=== PATIENT | female | born 1955 | race Caucasian/White ===

== ENCOUNTER → 2017-06-22 | Outpatient (CLI) | payer OTHER | LOC: FIMAGING 13:17 | PROVIDERS: ATTEND Internal Medicine | DX: Z12.31 Encounter for screening mammogram for malignant neoplasm of breast (principal) | CPT/HCPCS: G0202 ==

== ENCOUNTER → 2017-07-14 | Outpatient (CLI) | payer OTHER | LOC: FIMAGING 09:00 | PROVIDERS: ATTEND Internal Medicine | DX: Z12.39 Encounter for other screening for malignant neoplasm of breast (principal); R92.8 Other abnormal and inconclusive findings on diagnostic imaging of breast | CPT/HCPCS: G0206 ==

== ENCOUNTER 2018-02-17 07:04 | Emergency (ER) | payer OTHER ==
--- NOTE | 2018-02-17 07:21 | CPEKG ---
Heart Rate: 97 RR Interval: 619 P-R Interval: 172 QRSD Interval: 82 QT Interval: 332 QTC Interval: 422 P [place]: 32 QRS [place]: 13 T Wave [place]: 12 EKG Severity - NORMAL ECG - EKG Impression: SINUS RHYTHM Electronically Signed By: Aki Chowdhury 18-Feb-2018 07:37:20
[2018-02-17] MEDS ORDERED: HYOSCYAMINE SULFATE 0.125 MG TAB PO ONE (07:41)
[2018-02-17] MEDS ORDERED: LIDOCAINE 2% VISCOUS 15 ML UDCUP PO ONE (07:41)
[2018-02-17] MEDS ORDERED: ASPIRIN 81 MG CHEWABLE TAB PO ONE (07:41)
[2018-02-17] MEDS ORDERED: NS 500 ML IV ONE (07:41)
[2018-02-17] MEDS ORDERED: MAG HYDROX/AL HYDROX/SIMETH 30 ML UDCUP PO ONE (07:41)
--- NOTE | 2018-02-17 07:45 | EDPHY ---
H & P Time Seen by Provider: 02/17/18 07:20 HPI/ROS: CHIEF COMPLAINT: Epigastric pain/chest pain HISTORY OF PRESENT ILLNESS: The patient is a 63-year-old female who presents emergency department with epigastric/substernal chest pain. Pain started on night while sleeping. It is been constant. She describes it as 8/10. I woke her from sleep. It is slightly worse when she lays back or lays on her side. It improves when she sits forward. She has had no fever but does report chills. No shortness of breath. No cough. No nausea or vomiting. Patient states she drinks 1/2 to 1 bottle of wine per day. She does not smoke. REVIEW OF SYSTEMS: My complete review of systems is negative except as mentioned in the HPI. Past Medical/Surgical History: Includes hypertension Past surgical history: Cholecystectomy Family history: The patient's father of a heart attack age 50. The patient's mother had COPD Social history: The patient does not smoke. She drinks alcohol daily. Smoking Status: Never smoked Physical Exam: Vitals noted GENERAL: Well-appearing, in no acute distress, alert. HEENT: Eyes normal to inspection, normal pharynx, no signs of dehydration. NECK: [No thyromegaly, no lymphadenopathy, supple. RESPIRATORY: Clear to auscultation bilaterally, no rales, rhonchi or wheezing. CVS: Regular rate and rhythm, no rubs, murmurs, or gallops. ABDOMEN: Soft, nontender, nondistended, no organomegaly. Benign. BACK: Normal to inspection, no CVA tenderness. SKIN: Normal color, no rash, warm, dry. No pallor. EXTREMITIES: No pedal edema, no calf tenderness, no Homans sign or cords, no joint swelling. NEURO/PSYCH: Alert and oriented x3, normal mood and affect, normal motor sensory exam. Constitutional: Initial Vital Signs Temperature (C) 37.2 C 02/17/18 07:09 Heart Rate 109 H 02/17/18 07:09 Respiratory Rate 20 02/17/18 07:09 Blood Pressure 160/90 H 02/17/18 07:09 O2 Sat (%) 94 02/17/18 07:09 O2 Delivery Mode Room Air Allergies/Adverse Reactions: No Known Allergies Allergy (Unverified 02/17/18 07:06) Home Medications: Medication Instructions Recorded Estradiol 02/17/18 Famotidine [Pepcid 20 MG (*)] 20 mg PO BID #10 tab 02/17/18 Lisinopril 02/17/18 Progesterone 02/17/18 Sertraline HCl 02/17/18 Medical Decision Making - Diagnostics Imaging Results: Imaging Impressions Chest X-Ray 02/17/18 07:41 Impression: Left lower lobe opacity, atelectasis versus pneumonia with small left pleural effusion. Chest/Thorax CTA 02/17/18 08:07 Impression: 1. No evidence of pulmonary embolic disease. 2. Bibasilar opacities, left greater than right, probably reflecting atelectasis. 3. See above report for additional findings. Results called and discussed with LISA FELICIANO M.D. on 02/17/2018 at 9:09. ED Course/Re-evaluation: In the emergency department I discussed possible etiologies with the patient. I answered all her questions. Patient was given aspirin orally. She was given a GI cocktail. Laboratory studies, EKG and chest x-ray were ordered. EKG shows normal sinus rhythm, normal rate, normal axis, normal intervals. There are no ST or T-wave abnormalities. EKG is normal as interpreted by me. I reviewed the patient's laboratory studies. White count is 10. Chemistry panel is unremarkable. Lipase is normal. LFTs are normal. Troponin is negative. D-dimer was elevated at 1.81. I discussed this result with the patient. I answered all her questions. A CT angiogram was ordered. CT angiogram of the chest: Please refer the dictated report by Dr. Jimenez. No pulmonary embolus. No signs of cardiac enlargement. Normal appearing pancreas. Patient does have bilateral atelectasis versus small early infiltrate. I discussed the results with the patient. I answered all her questions. On recheck the patient stated she was feeling better after the GI cocktail. Again, the patient reports no shortness of breath or cough. No fevers at home. At this time I do not feel the patient needs to be started on antibiotics. I feel this is more likely atelectasis. The patient will ambulate regularly. She will take deep breaths. She will follow up with primary care physician. She was given warnings prior to leaving. She will return with worsening symptoms. Differential Diagnosis: My differential includes but is not limited to ACS, acute [place], pericarditis, myocarditis, pulmonary embolus, dissection, aneurysm, pancreatitis, GERD, peptic ulcer disease - Data Points Laboratory Results: Laboratory Results 02/17/18 07:25 02/17/18 07:25 02/17/18 02/17/18 02/17/18 07:46 07:31 07:25 WBC RBC Hgb POC Hgb 15.3 gm/dL gm/dL (12.6-16.3) Hct POC Hct 45 % % (38-47) MCV MCH MCHC RDW Plt Count MPV Neut % (Auto) Lymph % (Auto) [place] % (Auto) Eos % (Auto) Baso % (Auto) Nucleat RBC Rel Count Absolute Neuts (auto) Absolute Lymphs (auto) Absolute Monos (auto) Absolute Eos (auto) Absolute Basos (auto) Absolute Nucleated RBC Immature Gran % Immature Gran # D-Dimer 1.81 ug/mLFEU H ug/mLFEU (0.00-0.50) POC Sodium 140 mEq/L mEq/L (135-145) Sodium POC Potassium 3.4 mEq/L mEq/L (3.3-5.0) Potassium POC Chloride 101 mEq/L mEq/L (97-110) Chloride Carbon Dioxide Anion Gap POC BUN 9 mg/dL mg/dL (7-23) BUN Creatinine POC Creatinine 0.7 mg/dL mg/dL (0.6-1.0) Estimated GFR Glucose POC Glucose 122 mg/dL H mg/dL (70-100) Calcium Total Bilirubin Conjugated Bilirubin Unconjugated Bilirubin AST ALT Alkaline Phosphatase POC Troponin I 0.01 ng/mL ng/mL (0.00-0.08) Total Protein Albumin Lipase 02/17/18 02/17/18 07:25 07:25 WBC 10.37 10^3/uL H 10^3/uL (3.80-9.50) RBC 4.75 10^6/uL 10^6/uL (4.18-5.33) Hgb 14.5 g/dL g/dL (12.6-16.3) POC Hgb Hct 42.9 % % (38.0-47.0) POC Hct MCV 90.3 fL fL (81.5-99.8) MCH 30.5 pg pg (27.9-34.1) MCHC 33.8 g/dL g/dL (32.4-36.7) RDW 13.0 % % (11.5-15.2) Plt Count 339 10^3/uL 10^3/uL (150-400) MPV 9.7 fL fL (8.7-11.7) Neut % (Auto) 84.7 % H % (39.3-74.2) Lymph % (Auto) 8.0 % L % (15.0-45.0) Morgan % (Auto) 6.8 % % (4.5-13.0) Eos % (Auto) 0.1 % L % (0.6-7.6) Baso % (Auto) 0.2 % L % (0.3-1.7) Nucleat RBC Rel Count 0.0 % % (0.0-0.2) Absolute Neuts (auto) 8.79 10^3/uL H 10^3/uL (1.70-6.50) Absolute Lymphs (auto) 0.83 10^3/uL L 10^3/uL (1.00-3.00) Absolute Monos (auto) 0.70 10^3/uL 10^3/uL (0.30-0.80) Absolute Eos (auto) 0.01 10^3/uL L 10^3/uL (0.03-0.40) Absolute Basos (auto) 0.02 10^3/uL 10^3/uL (0.02-0.10) Absolute Nucleated RBC 0.00 10^3/uL 10^3/uL (0-0.01) Immature Gran % 0.2 % % (0.0-1.1) Immature Gran # 0.02 10^3/uL 10^3/uL (0.00-0.10) D-Dimer POC Sodium Sodium 142 mEq/L mEq/L (135-145) POC Potassium Potassium 3.8 mEq/L mEq/L (3.3-5.0) POC Chloride Chloride 104 mEq/L mEq/L (97-110) Carbon Dioxide 25 mEq/l mEq/l (22-31) Anion Gap 13 mEq/L mEq/L (8-16) POC BUN BUN 11 mg/dL mg/dL (7-23) Creatinine 0.7 mg/dL mg/dL (0.6-1.0) POC Creatinine Estimated GFR > 60 Glucose 114 mg/dL H mg/dL (70-100) POC Glucose Calcium 9.4 mg/dL mg/dL (8.5-10.4) Total Bilirubin 1.1 mg/dL mg/dL (0.1-1.4) Conjugated Bilirubin 0.4 mg/dL mg/dL (0.0-0.5) Unconjugated Bilirubin 0.7 mg/dL mg/dL (0.0-1.1) AST 25 IU/L IU/L (14-46) ALT 37 IU/L IU/L (9-52) Alkaline Phosphatase 68 IU/L IU/L (38-126) POC Troponin I Total Protein 7.6 g/dL g/dL (6.3-8.2) Albumin 4.5 g/dL g/dL (3.5-5.0) Lipase 74 IU/L IU/L (23-300) Medications Given: Discontinued Medications Al Hydroxide/Mg Hydroxide (Maalox Susp) 30 ml PO ONCE ONE Stop: 02/17/18 07:42 Last Admin: 02/17/18 07:49 Dose: 30 ml Aspirin (Aspirin) 324 mg PO EDNOW ONE Stop: 02/17/18 07:42 Last Admin: 02/17/18 07:48 Dose: 324 mg Hyoscyamine Sulfate (Levsin, Hyomax-Sl) 0.25 mg PO ONCE ONE Stop: 02/17/18 07:42 Last Admin: 02/17/18 07:48 Dose: 0.25 mg Sodium Chloride (Ns) 500 mls @ 1,000 mls/hr IV EDNOW ONE PRN Reason: Protocol Stop: 02/17/18 08:10 Last Admin: 02/17/18 07:49 Dose: 500 mls Lidocaine (Lidocaine 2% Viscous) 15 ml PO ONCE ONE Stop: 02/17/18 07:42 Last Admin: 02/17/18 07:51 Dose: 15 ml Point of Care Test Results: Chemistry 02/17/18 02/17/18 07:46 07:31 POC Sodium 140 mEq/L mEq/L (135-145) POC Potassium 3.4 mEq/L mEq/L (3.3-5.0) POC Chloride 101 mEq/L mEq/L (97-110) POC BUN 9 mg/dL mg/dL (7-23) POC Creatinine 0.7 mg/dL mg/dL (0.6-1.0) POC Glucose 122 mg/dL H mg/dL (70-100) POC Troponin I 0.01 ng/mL ng/mL (0.00-0.08) ISTAT H&H 02/17/18 07:31 POC Hgb 15.3 gm/dL gm/dL (12.6-16.3) POC Hct 45 % % (38-47) Departure - Departure Disposition: Home, Routine, Self-Care Clinical Impression: Chest pain Qualifiers: Chest pain type: unspecified Qualified Code(s): R07.9 - Chest pain, unspecified Condition: Good Instructions: Chest Pain (ED) Additional Instructions: Take Pepcid twice a day. Use Maalox as needed. Call Dr. Martins on Monday morning. Return to the emergency department with increasing pain, shortness of breath, fever, cough or any other concerns. Referrals: Emelia Dela Cruz MD [Primary Care Provider] - 2-3 days, call for appt. Steven Izquierdo MD, FACG [Medical Doctor] - 2-3 days, if not improved Prescriptions: Famotidine [Pepcid 20 MG (*)] 20 mg PO BID #10 tab
[2018-02-17 07:48] LABS: PLATELET COUNT 339 10^3/uL (150-400)
[2018-02-17] MEDS ORDERED: IOPAMIDOL (ISOVUE 370) 100 ML BTL IV ONE (08:10)
[2018-02-17 09:31] VITALS: BP 142/82
== END 2018-02-17 09:30 | disposition home or self-care (01) ==
DX: R07.9 Chest pain, unspecified (principal); I10 Essential (primary) hypertension; E86.9 Volume depletion, unspecified
CPT/HCPCS: 82435-PO; 82565-PO; 82947-PO; 84132-PO; 84295-PO; 84484-PO; 84520-PO; 85014-PO; Q9967

== ENCOUNTER → 2019-01-08 | Outpatient (CLI) | payer OTHER | LOC: FIMAGING 07:35 | PROVIDERS: ATTEND Internal Medicine | DX: Z12.31 Encounter for screening mammogram for malignant neoplasm of breast (principal) ==